=== PATIENT | female | born 1965 | race Caucasian/White ===

== ENCOUNTER 2025-02-02 09:16 | Emergency (ER) | payer OTHER ==
[~2025-02-02] VITALS: Ht 167.6 cm; Wt 67.1 kg
[2025-02-02] MEDS ORDERED: HYDROCODONE/APAP 5/325MG TABLET ONE (10:05)
[2025-02-02] MEDS ORDERED: BACLOFEN (10 MG) 10 MG TABLET ONE (10:05)
[2025-02-02] MEDS: BACLOFEN (10 MG) 10 MG TABLET PO ONE (10:11)
[2025-02-02] MEDS: HYDROCODONE/APAP 5/325MG TABLET PO ONE (10:12)
[2025-02-02] MEDS: IV NS 0.9% 1,000 ML BAG IV ONE (11:02)
[2025-02-02] MEDS ORDERED: PROPOFOL 20 ML IV ONE (11:05)
[2025-02-02] MEDS: PROPOFOL 200 MG/20 ML VIAL IV ONE (11:35)
[2025-02-02] MEDS: KETAMINE HCL(200MG/20ML) 10 MG/ML VIAL IV ONE (11:37)
[2025-02-02] MEDS ORDERED: KETO10TA2 PO (11:57)
[2025-02-02] MEDS ORDERED: CYCL5TAB PO (11:57)
[2025-02-02 12:14] VITALS: BP 122/78; TEMP 98.1; O2SAT 100
== END 2025-02-02 12:15 | disposition home or self-care (01) ==
LOC: ER 09:16
DX: M25.561 Pain in right knee (principal)
CPT/HCPCS: 99285; 96360; 99152; 73564; J2704; J7030; G0500